=== PATIENT | male | born 1975 | race Caucasian/White ===

== ENCOUNTER 2019-09-14 08:01 | Emergency (ER) | payer MEDICAID, OTHER ==
[~2019-09-14] VITALS: Ht 185.4 cm; Wt 80.6 kg
[~2019-09-14 08:01] MED LIST: ELEC100095 PO; ONDA4TAB14 PO; SUCR1TAB56 PO
[2019-09-14 08:04] VITALS: BP 149/99; PULSE 91; RESP 19; Ht 185.4 cm; Wt 80.6 kg
[2019-09-14] MEDS ORDERED: morphine 4 MG/ML VIAL IV STA (08:27)
[2019-09-14] MEDS ORDERED: SOD CHLORIDE 0.9% 1,000 ML IV STA (08:27)
[2019-09-14] MEDS ORDERED: ONDANSETRON 4 MG INJ IV STA (08:27)
[2019-09-14] MEDS ORDERED: SOD CHLORIDE 0.9% 100 ML ONE (10:29)
[2019-09-14] MEDS ORDERED: IOHEXOL 300MG/ML 150 ML BTL ONE (10:29)
== END 2019-09-14 13:05 | disposition home or self-care (01) ==
LOC: FTE 08:01
DX: R10.9 Unspecified abdominal pain (principal); F17.210 Nicotine dependence, cigarettes, uncomplicated
CPT/HCPCS: 36415; 71045; 74177; 80053; 81001; 81003; 83690; 85025; 96374; 96375; J2270; J2405; J7030; Q9967; Z7502; Z7610